=== PATIENT | female | born 1950 | race Caucasian/White ===

== ENCOUNTER → 2016-11-21 | Outpatient (CLI) | payer MEDICARE, OTHER | LOC: LAB.O 08:35 | PROVIDERS: ATTEND Internal Medicine Rheumatology | DX: M06.9 Rheumatoid arthritis, unspecified (principal); Z79.899 Other long term (current) drug therapy ==

== ENCOUNTER 2017-01-01 18:06 | Emergency (ER) | payer MEDICARE, OTHER ==
[2017-01-01] MEDS ORDERED: ALUMINUM & MAGNESIUM HYDROXIDE 30 ML UD PO ONE (18:28)
[2017-01-01] MEDS ORDERED: PREGABALIN 75 MG CAP PO ONE (18:28)
[2017-01-01] MEDS ORDERED: ACETAMINOPHEN-CAFF-BUTALBITAL 1 EA TAB PO SCH ×2 (18:30→23:30)
--- NOTE | 2017-01-01 18:53 | RAD ---
EXAM DESCRIPTION: Chest,2 Views CLINICAL HISTORY: chest pain 12 hours COMPARISON: None FINDINGS: Cardiac silhouette is within normal limits. Linear opacities in the left lower lung may represent scar versus subsegmental atelectasis. There is no focal parenchymal or pleural disease. There is no acute osseous process visualized. IMPRESSION: No evidence of acute cardiopulmonary disease. Electronically signed by: Leonidas Nath MD 01/01/2017 6:52 PM WAREHOUSE DELIVERY MANAGER
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
[2017-01-01 23:44] VITALS: BP 146/93; TEMP 97.8; O2SAT 96
--- NOTE | 2017-01-15 00:10 | RAD ---
EXAM DESCRIPTION: Chest,2 Views CLINICAL HISTORY: chest pain 12 hours COMPARISON: None FINDINGS: Cardiac silhouette is within normal limits. Linear opacities in the left lower lung may represent scar versus subsegmental atelectasis. There is no focal parenchymal or pleural disease. There is no acute osseous process visualized. IMPRESSION: No evidence of acute cardiopulmonary disease. Electronically signed by: Leonidas Nath MD 01/01/2017 6:52 PM CASE MONITOR
== END 2017-01-01 23:44 | disposition home or self-care (01) ==
LOC: ER 18:06
DX: M94.0 Chondrocostal junction syndrome [Tietze] (principal); J45.909 Unspecified asthma, uncomplicated; Z86.73 Personal history of transient ischemic attack (TIA), and cerebral infarction without residual deficits; I10 Essential (primary) hypertension; E07.9 Disorder of thyroid, unspecified; Z88.8 Allergy status to other drugs, medicaments and biological substances; Z88.6 Allergy status to analgesic agent; Z88.0 Allergy status to penicillin; Z88.2 Allergy status to sulfonamides; Z79.899 Other long term (current) drug therapy; Z87.891 Personal history of nicotine dependence

== ENCOUNTER 2017-01-19 11:43 | Emergency (ER) | payer MEDICARE, OTHER ==
[2017-01-19] MEDS ORDERED: LIDOCAINE VIS-MYLANTA 30 ML UD PO ONE (11:49)
--- NOTE | 2017-01-19 13:05 | RAD ---
EXAM DESCRIPTION: Chest,2 Views CLINICAL HISTORY: 67 yearsFemale, recurrent chest pain COMPARISON: January 01, 2017 IMPRESSION: Heart size and pulmonary vascularity are within normal limits. There is no airspace consolidation, pleural effusion, or pneumothorax. No acute osseous abnormality. All findings are stable when compared to prior. Electronically signed by: Morgan Tabor MD 01/19/2017 1:04 PM MIDDLE SCHOOL DIRECTOR
[2017-01-19] MEDS ORDERED: NITROGLYCERIN 0.4 MG 25 EA TAB SL ONE (13:50)
[2017-01-19 14:52] VITALS: TEMP 97.8
--- NOTE | 2017-01-19 16:55 | CT ---
EXAM: CTA Chest CLINICAL INDICATION: 67-year-old female COMPARISON: 05/31/2016. EXAMINATION: CT angiography of the pulmonary arteries was performed following intravenous administration of contrast. Coronal and bilateral oblique maximum intensity projections (MIPS) were created. FINDINGS: Chest: Evaluation through the lungs reveals no focal opacity, pleural effusion or pneumothorax. There is minimal dependent basilar atelectasis and scarring. The tracheobronchial airways are patent. No significant mediastinal or axillary lymphadenopathy by CT measurement criteria. Heart size within normal limits. Mild pericardial effusion or thickening slightly increased since the previous examination. Limited evaluation of the upper abdomen shows no acute intra-abdominal abnormalities. Surgical clips present at the level of the gallbladder fossa status post cholecystectomy. The osseous structures are within normal limits. Multilevel vertebral body hemangioma. CT angiography: Diagnostic CT angiography of the pulmonary arteries without intraluminal filling defect noted to suggest pulmonary arterial embolus. IMPRESSION: 1. Diagnostic pulmonary angiography without findings to suggest pulmonary arterial embolus. 2. The lungs are clear without focal opacity, pleural effusion or pneumothorax. 3. Mild pericardial effusion or thickening slightly increased since the previous examination. 4. No specific findings are noted to suggest etiology of the patient's chest pain and shortness of breath. Electronically signed by: Yumiko Otero MD 01/19/2017 4:54 PM MONUMENT SETTER
[2017-01-19] MEDS ORDERED: fentaNYL CITRATE INJ 50 MCG/ML AMP IV ONE (17:15)
[2017-01-19] MEDS ORDERED: NITROGLYCERIN 2% 1 GM UD TOP ONE ×2 (17:15→18:06)
[2017-01-19] MEDS ORDERED: fentaNYL PATCH 50 MCG/HR 1 EA PATCH TD ONE (17:24)
--- NOTE | 2017-01-19 17:28 | ED.PDOC ---
History of Present Illness - General Chief Complaint: Chest Pain/MO Stated Complaint: Sudden onset chest pain while at [employer] Time Seen by Provider: 01/19/17 11:46 Source: patient Exam Limitations: no limitations - History of Present Illness Initial Comments: the patient is a 67-year-old female presenting to the emergency room secondary to chest pain that is substernal. No radiation to the jaw or the shoulder. It is squeezing and burning at the same time. No palpitations. She did become short of breath with it. She did feel weak with it. It has been present approximately 20 minutes prior to arrival. At its worst it was an 8 out of 10 it is now down to a 5 out of 10. The patient denies any significant cardiac history but she was in here several weeks ago for a similar but less severe episode. The patient does have rheumatoid arthritis and went off of her medications to treat her rheumatoid arthritis as well as her Savella and Lyrica approximately 3-4 weeks ago due to funding reasons.. She does have a history of rheumatoid arthritis. She also has a history of irritable bowel syndrome, fibromyalgia, depression and anxiety as well as chronic back pain. She has had multiple neck and back surgeries. She has also had multiple abdominal surgeries. She has had multiple CT scans in the past due to her chronic pain issues and has had multiple CT scans of the chest for chronically elevated D dimers. She does not believe that she has ever had a blood clot. She is not hypoxic here today. She is reporting some dyspnea but is not tachypneic And is showing no evidence of respiratory distress. Affect is fairly flat. Timing/Duration: 1/2 hour Severity: severe Improving Factors: nothing Worsening Factors: nothing Associated Symptoms: chest pain, diaphoresis, malaise, shortness of breath Allergies/Adverse Reactions: Allergies Estradiol [From Depo-Estradiol] Allergy (Unknown, Verified 01/01/17 18:34) Rash Obtained from ' note Aspirin Allergy (Verified 01/01/17 18:34) Atorvastatin [From Lipitor] Allergy (Verified 01/01/17 18:34) Beta Adrenergic Blockers Allergy (Verified 01/01/17 18:34) Gabapentin [From Neurontin] Allergy (Verified 01/01/17 18:34) Hydrocodone Allergy (Verified 01/01/17 18:34) Penicillins Allergy (Verified 02/13/17 18:34) Sulfa Drugs Allergy (Verified 01/01/17 18:34) Pravastatin Adverse Reaction (Verified 01/01/17 18:34) steroids Adverse Reaction (Uncoded 01/01/17 18:34) Home Medications: Ambulatory Orders Tramadol HCl 50 mg PO Q6H PRN 02/16/14 Levothyroxine Sodium [Synthroid] 75 mcg PO DAILY 01/06/16 amLODIPine BESYLATE [Norvasc] 10 mg PO DAILY 01/06/16 cloNAZepam [KlonoPIN] 0.5 mg PO BEDTIME 01/06/16 Propranolol HCl 10 mg PO BID 01/19/17 fentaNYL PATCH 75 MCG/HR [Duragesic Patch 75 MCG/HR] 1 unit TOP .Q72 HR Review of Systems - Review of Systems Constitutional: States: malaise, weakness - generalized EENTM: States: no symptoms reported Respiratory: States: short of breath - mild Cardiology: States: chest pain. Denies: edema, palpitations, syncope Gastrointestinal/Abdominal: States: no symptoms reported Genitourinary: States: no symptoms reported Musculoskeletal: States: no symptoms reported - chronic problems Skin: States: no symptoms reported Neurological: States: anxiety - mild Endocrine: States: no symptoms reported All other Systems: No Change from Baseline Past Medical History (General) - Patient Medical History Hx Seizures: Yes - As a child x1 Hx Stroke: Yes Hx Asthma: Yes Hx of COPD: Yes Hx Cardiac Disorders: Yes Hx Congestive Heart Failure: No Hx Pacemaker: No Hx Hypertension: Yes Hx Thyroid Disease: Yes Hx Diabetes: No Hx Cancer: No Hx Hepatitis C: No Hx MRSA: No Surgical History: cholecystectomy, Hysterectomy - Vaccination History Hx Tetanus, Diphtheria Vaccination: No Hx Influenza Vaccination: Yes Hx Pneumococcal Vaccination: Yes Immunizations Up to Date: Yes - Social History Hx Tobacco Use: No Hx Chewing Tobacco Use: No Hx Alcohol Use: No Hx Substance Use: No Hx Substance Use Treatment: No Hx Depression: No Feels Threatened In Home Enviroment: No Feels Threatened In a Relationship: No Hx Physical Abuse: No Hx Emotional Abuse: No Hx Suspected Abuse: No - Female History Patient is a Female of Child Bearing Age (10 -59 yrs old): No Patient : No Family Medical History - Family History Father Family History: Unknown Hx Family;Other: Adopted Physical Exam - Physical Exam General Appearance: Alert, No apparent distress Eye Exam: bilateral normal Ears, Nose, Throat: hearing grossly normal, normal ENT inspection, normal pharynx Neck: full range of motion, supple, normal inspection Respiratory: chest non-tender, lungs clear, normal breath sounds, no respiratory distress, no accessory muscle use Cardiovascular/Chest: normal peripheral pulses, regular rate, rhythm, no edema Peripheral Pulses: radial,right: 2+, radial,left: 2+, dorsalis pedis,right: 2+, dorsalis pedis,left: 2+ Gastrointestinal/Abdominal: non tender, soft Rectal Exam: deferred Back Exam: no CVA tenderness, no vertebral tenderness - chronic pain primarily Extremity: normal range of motion, non-tender, normal inspection, no pedal edema , no calf tenderness, normal capillary refill Neurologic: alert, normal mood/affect, oriented x 3 Skin Exam: normal color Comments: Vital Signs - 24 hr 01/19/17 01/19/17 01/19/17 12:00 12:10 13:00 Temperature 97.8 F Pulse Rate [L 82 83 Arm] Respiratory 16 20 Rate Blood Pressure 126/81 144/94 [L Arm] O2 Sat by Pulse 94 L 100 96 Oximetry 01/19/17 01/19/17 01/19/17 14:00 15:00 16:00 Temperature Pulse Rate [L 85 77 82 Arm] Respiratory 18 16 16 Rate Blood Pressure 120/79 131/77 129/79 [L Arm] O2 Sat by Pulse 95 96 96 Oximetry Progress - Progress Progress: 01/19/17 17:31 the patient is a 67-year-old female presenting to the emergency room secondary to rapid onset of chest pain. She had one similar episode of chest pain a few weeks ago that was attributed to her coming off her pain medications. GI cocktail of course did not help with pain as well as several doses of nitroglycerin failed to help with the pain. The pain does not appear to be musculoskeletal or reproducible. Cardiac enzymes are negative however repeat EKG shows new T-wave inversions in leads V4, V5 and V6. CT scan of the chest done as a PE and rule out has shown no evidence of pulmonary embolus but does possibly show some thickening of the pericardium as well as a small pericardial effusion. There are certainly no symptoms of tamponade on in this patient. Vital signs have remained stable. The patient reports an allergy to aspirin and beta blockers. The patient has received oxygen, nitroglycerin, and opiates in the form of fentanyl which she is apparently not allergic to. I'm avoiding blood thinners otherwise due to the possibility of pericarditis. She is also reporting intolerance to steroids which may not be a true allergy. Transferring the patient for continuation of care and possible cardiac evaluation. Certainly now being a month off of her medications to treat her rheumatoid, complications are certainly possible. Other NSAIDs besides aspirin at this time are being avoided due to possibility of a coronary issue. she will need additional repeat cardiac enzymes and EKGs along with an ESR and CRP. 01/19/17 17:41 - Results/Orders Results/Orders: Laboratory Tests 01/19/17 01/19/17 01/19/17 12:00 12:10 14:41 WBC 4.5 L RBC 4.59 Hgb 13.0 Hct 39.9 MCV 87.0 MCH 28.4 MCHC 32.6 L RDW 14.5 Plt Count 212 MPV 9.5 Absolute Neuts (auto) 3.10 Absolute Lymphs (auto) 0.90 L Absolute Monos (auto) 0.30 Absolute Eos (auto) 0.20 Absolute Basos (auto) 0.10 Neutrophils % 67.3 Lymphocytes % 19.1 L Monocytes % 7.4 Eosinophils % 4.6 Basophils % 1.6 PT 10.9 INR 0.960 PTT (SP) 30.4 D-Dimer, Quantitative 720 H* Sodium 141 Potassium 3.8 Chloride 104 Carbon Dioxide 25 Anion Gap 15.8 BUN 20 H Creatinine 1.15 BUN/Creatinine Ratio 17.4 Random Glucose 125 H Serum Osmolality 285.3 Calcium 9.1 Total Bilirubin 0.6 AST 29 ALT 14 Alkaline Phosphatase 77 Creatine Kinase 64 65 CK-MB (CK-2) 1.3 1.3 CK-MB (CK-2) % Not Reportable Not Reportable Troponin I < 0.02 < 0.02 B-Natriuretic Peptide 71.5 Serum Total Protein 7.0 Albumin 3.9 Globulin 3.1 Albumin/Globulin Ratio 1.3 Amylase 91 Lipase 26 chest x-ray appears benign. CT angiogram of the chest due to elevated d-dimer as well as shortness of breath shows no evidence of pulmonary embolus. There is however concerned of a small pericardial effusion and pericardial thickening. Departure - Departure Clinical Impression: Chest pain at rest Rheumatoid arthritis Qualifiers: Rheumatoid arthritis location: multiple sites Rheumatoid factor presence: with rheumatoid factor Qualifier Code: (M05.79) Rheumatoid arthritis with rheumatoid factor of multiple sites without organ or systems involvement Disposition: Transfer to Hospital Condition: Fair Home Medications: Ambulatory Orders Tramadol HCl 50 mg PO Q6H PRN 02/16/14 Levothyroxine Sodium [Synthroid] 75 mcg PO DAILY 01/06/16 amLODIPine BESYLATE [Norvasc] 10 mg PO DAILY 01/06/16 cloNAZepam [KlonoPIN] 0.5 mg PO BEDTIME 01/06/16 Propranolol HCl 10 mg PO BID 01/19/17 fentaNYL PATCH 75 MCG/HR [Duragesic Patch 75 MCG/HR] 1 unit TOP .Q72 HR Transfer to Outside Facility - Transfer Information Accepting Provider:: dr waldron Accepting Facility: [facility] Reason for Transfer: required specialist not available
[2017-01-19 19:18] VITALS: BP 174/81; O2SAT 97
== END 2017-01-19 18:35 | disposition short-term general hospital (02) ==
LOC: ER 11:43
DX: R07.9 Chest pain, unspecified (principal); M05.79 Rheumatoid arthritis with rheumatoid factor of multiple sites without organ or systems involvement; R06.02 Shortness of breath; J44.9 Chronic obstructive pulmonary disease, unspecified; I10 Essential (primary) hypertension; E07.9 Disorder of thyroid, unspecified; Z88.8 Allergy status to other drugs, medicaments and biological substances; Z88.0 Allergy status to penicillin; Z88.2 Allergy status to sulfonamides; Z88.6 Allergy status to analgesic agent; Z79.899 Other long term (current) drug therapy
CPT/HCPCS: 36415; 71020; 71275; 80053; 82150; 82550; 82553; 83690; 83880; 84484; 85025; 85379; 85610; 85730; 93005; J3010

== ENCOUNTER → 2017-06-27 | Outpatient (CLI) | payer MEDICARE, OTHER | END | disposition home or self-care (01) | LOC: GMAJ 10:52 | PROVIDERS: ATTEND Family Medicine | DX: E03.8 Other specified hypothyroidism (principal) ==

== ENCOUNTER 2019-10-19 13:31 | Inpatient (IN) | payer MEDICARE, OTHER ==
[2019-10-19] MEDS ORDERED: methylPREDNISolone SODIUM SUC 125 MG/2 ML VIAL IM ONE (14:05)
[2019-10-19] MEDS ORDERED: IPRATROPIUM/ALBUTEROL 3 ML VIAL NEB ONE ×3 (14:10→14:44)
--- NOTE | 2019-10-19 15:02 | RAD ---
EXAM DESCRIPTION: XR Chest,1 View CLINICAL HISTORY: 69 years Female, sob COMPARISON: 2 view chest dated January 19, 2017. FINDINGS: Heart size appears within normal limits. There is atherosclerotic change in the thoracic aorta. The lungs appear essentially clear and unchanged compared to the last examination, although there is slight underpenetration of the left lung base and relative elevation of the right hemidiaphragm. No obvious pneumothorax identified on this upright portable film. Postoperative change is again identified in the cervicothoracic portion of the spine. In the interval, there are new postoperative changes with metallic hardware in the lumbar spine, along with placement of a spinal stimulator device, with the leads extending up into the mid thoracic region. IMPRESSION: No radiographic evidence of acute cardiopulmonary disease. Electronically signed by: Nikhil Jerez MD 10/19/2019 3:01 PM [facility]
--- NOTE | 2019-10-19 15:07 | ED.PDOC ---
History of Present Illness - General Chief Complaint: General Stated Complaint: fever,congestion,hurts all over Time Seen by Provider: 10/19/19 14:04 - History of Present Illness Initial Comments: c/o having intermittent fever , cough with greenish sputum , associated with soib and wheezing since 2 days , getting worse today , no nausea or vomiting Allergies/Adverse Reactions: Allergies Estradiol [From Depo-Estradiol] Allergy (Unknown, Verified 01/01/17 18:34) Rash Obtained from ' note Aspirin Allergy (Verified 01/01/17 18:34) Atorvastatin [From Lipitor] Allergy (Verified 01/01/17 18:34) Beta Adrenergic Blockers Allergy (Verified 01/01/17 18:34) Gabapentin [From Neurontin] Allergy (Verified 01/01/17 18:34) Hydrocodone Allergy (Verified 01/01/17 18:34) Penicillins Allergy (Verified 01/01/17 18:34) Pregabalin [From Lyrica] Allergy (Verified 10/19/19 14:54) Sulfa Drugs Allergy (Verified 01/01/17 18:34) Pravastatin Adverse Reaction (Verified 01/01/17 18:34) steroids Adverse Reaction (Uncoded 01/01/17 18:34) Home Medications: Ambulatory Orders Tramadol HCl 100 mg PO Q6H PRN 02/16/14 Levothyroxine Sodium [Synthroid] 75 mcg PO DAILY 01/06/16 amLODIPine BESYLATE [Norvasc] 10 mg PO DAILY 01/06/16 Propranolol HCl 10 mg PO DAILY 01/19/17 Amitriptyline HCl [Amitriptyline Hydrochlori] 25 mg PO BEDTIME 10/19/19 Aspirin [Aspirin Adult Low Dose] 81 mg PO DAILY 10/19/19 Clopidogrel Bisulfate [Plavix] 75 mg PO QD 10/19/19 DULoxetine HCL [Cymbalta] 30 mg PO DAILY 10/19/19 Hydroxyzine HCl [Hydroxyzine Hydrochloride] 50 mg PO TID PRN 10/19/19 Montelukast [Singulair] 10 mg PO DAILY 10/19/19 Omeprazole 40 mg PO DAILY 10/19/19 Oxybutynin Chloride 5 mg PO TID 10/19/19 Rivastigmine Tartrate 3 mg PO BID 10/19/19 Review of Systems - Review of Systems Constitutional: States: see HPI EENTM: States: no symptoms reported Respiratory: States: see HPI Cardiology: States: no symptoms reported Gastrointestinal/Abdominal: States: no symptoms reported Genitourinary: States: no symptoms reported Musculoskeletal: States: no symptoms reported Skin: States: no symptoms reported Neurological: States: no symptoms reported Endocrine: States: no symptoms reported Hematologic/Lymphatic: States: no symptoms reported Past Medical History (General) - Patient Medical History Hx Seizures: Yes - As a child x1 Hx Stroke: No Hx Asthma: Yes Hx of COPD: Yes Hx Cardiac Disorders: Yes Hx Congestive Heart Failure: Yes Hx Pacemaker: No Hx Hypertension: Yes Hx Thyroid Disease: Yes Hx Diabetes: No Hx Cancer: No Hx Hepatitis C: No Hx MRSA: No - Vaccination History Hx Tetanus, Diphtheria Vaccination: No Hx Influenza Vaccination: Yes Hx Pneumococcal Vaccination: Yes - Social History Hx Tobacco Use: Yes Hx Chewing Tobacco Use: No Hx Alcohol Use: No Hx Substance Use: No Hx Substance Use Treatment: No Hx Depression: No Hx Physical Abuse: No Hx Emotional Abuse: No Hx Suspected Abuse: No - Female History Patient : No Family Medical History - Family History Father Family History: Unknown Hx Family;Other: Adopted Physical Exam - Physical Exam General Appearance: Ill Appearing Eye Exam: bilateral normal Ears, Nose, Throat: normal ENT inspection Neck: non-tender, full range of motion, supple, normal inspection Respiratory: respiratory distress, decreased breath sounds, wheezing Cardiovascular/Chest: tachycardia Gastrointestinal/Abdominal: non tender Back Exam: normal inspection, no CVA tenderness, no vertebral tenderness Extremity: normal range of motion, non-tender, normal inspection Neurologic: no motor/sensory deficits, alert, normal mood/affect, oriented x 3 Skin Exam: normal color Lymphatic: no adenopathy Progress - Progress Progress: 10/19/19 15:20 Case discuss with hospitalist Ronny agreed to admit for 24 hours observation - Results/Orders Results/Orders: 10/19/19 14:20 STREP A SCREEN CULTURE Stat Laboratory Results WBC 8.4 K/mm3 (4.8-10.8) 10/19/19 14:17 RBC 4.79 M/mm3 (4.20-5.40) 10/19/19 14:17 Hgb 13.6 gm/dL (12.0-16.0) 10/19/19 14:17 Hct 40.4 % (36.0-47.0) 10/19/19 14:17 MCV 84.2 fl (81.0-99.0) 10/19/19 14:17 MCH 28.4 pg (27.0-31.0) 10/19/19 14:17 MCHC 33.7 g/dL (33.0-37.0) 10/19/19 14:17 RDW 15.2 % (11.5-14.5) H 10/19/19 14:17 Plt Count 184 K/mm3 (130-400) 10/19/19 14:17 MPV 8.2 fl (7.40-10.4) 10/19/19 14:17 Absolute Neuts (auto) 6.70 K/uL (1.8-6.8) 10/19/19 14:17 Absolute Lymphs (auto) 0.60 K/uL (1.0-3.4) L 10/19/19 14:17 Absolute Monos (auto) 0.90 K/uL (0.2-0.8) H 10/19/19 14:17 Absolute Eos (auto) 0.10 K/uL (0.0-0.4) 10/19/19 14:17 Absolute Basos (auto) 0.10 K/uL (0.0-0.1) 10/19/19 14:17 Neutrophils % 79.6 % (42.0-78.0) H 10/19/19 14:17 Lymphocytes % 7.7 % (20.0-50.0) L 10/19/19 14:17 Monocytes % 10.9 % (2.0-9.0) H 10/19/19 14:17 Eosinophils % 0.9 % (1.0-5.0) L 10/19/19 14:17 Basophils % 0.9 % (0.0-2.0) 10/19/19 14:17 Sodium 132 mmol/L (135-145) L 10/19/19 14:17 Potassium 3.6 mmol/L (3.6-5.0) 10/19/19 14:17 Chloride 100 mmol/L (101-111) L 10/19/19 14:17 Carbon Dioxide 21 mmol/L (21-31) 10/19/19 14:17 Anion Gap 14.6 (12-18) 10/19/19 14:17 BUN 17 mg/dL (7-18) 10/19/19 14:17 Creatinine 1.31 mg/dL (0.6-1.3) H 10/19/19 14:17 BUN/Creatinine Ratio 13.0 (10-20) 10/19/19 14:17 Random Glucose 121 mg/dL (70-105) H 10/19/19 14:17 Serum Osmolality 267.3 mOsm/L (275-295) L 10/19/19 14:17 Calcium 8.8 mg/dL (8.4-10.2) 10/19/19 14:17 Total Bilirubin 0.7 mg/dL (0.2-1.0) 10/19/19 14:17 AST 27 IU/L (10-42) 10/19/19 14:17 ALT 14 IU/L (10-60) 10/19/19 14:17 Alkaline Phosphatase 81 IU/L (42-121) 10/19/19 14:17 Serum Total Protein 7.4 gm/dL (6.4-8.2) 10/19/19 14:17 Albumin 4.0 g/dl (3.2-5.5) 10/19/19 14:17 Globulin 3.4 gm/dL (2.3-3.5) 10/19/19 14:17 Albumin/Globulin Ratio 1.2 (1.1-1.9) 10/19/19 14:17 Group A Strep Rapid Negative (NEGATIVE) 10/19/19 14:20 - EKG/XRAY/CT Xray Comments: Normal Departure - Departure Clinical Impression: Acute bronchitis, Acute exacerbation of COPD with asthma Disposition: Admit Patient Condition: Fair Departure Forms: ED Discharge - Pt. Copy, Patient Portal Self Enrollment Referrals: Driss España MD [Primary Care Provider] - 1-2 Weeks Home Medications: Ambulatory Orders Tramadol HCl 100 mg PO Q6H PRN 02/16/14 Levothyroxine Sodium [Synthroid] 75 mcg PO DAILY 01/06/16 amLODIPine BESYLATE [Norvasc] 10 mg PO DAILY 01/06/16 Propranolol HCl 10 mg PO DAILY 01/19/17 Amitriptyline HCl [Amitriptyline Hydrochlori] 25 mg PO BEDTIME 10/19/19 Aspirin [Aspirin Adult Low Dose] 81 mg PO DAILY 10/19/19 Clopidogrel Bisulfate [Plavix] 75 mg PO QD 10/19/19 DULoxetine HCL [Cymbalta] 30 mg PO DAILY 10/19/19 Hydroxyzine HCl [Hydroxyzine Hydrochloride] 50 mg PO TID PRN 10/19/19 Montelukast [Singulair] 10 mg PO DAILY 10/19/19 Omeprazole 40 mg PO DAILY 10/19/19 Oxybutynin Chloride 5 mg PO TID 10/19/19 Rivastigmine Tartrate 3 mg PO BID 10/19/19
[2019-10-19] MEDS ORDERED: ACETAMINOPHEN 500 MG TAB PO ONE (15:14)
[2019-10-19] MEDS ORDERED: OSELTAMIVIR 75 MG CAP PO ONE (15:30)
--- NOTE | 2019-10-19 15:45 | HP ---
SUPERVISING PHYSICIAN: Dariel Warner MD CHIEF COMPLAINT: Fever, shortness of breath. HISTORY OF PRESENT ILLNESS: Ms. Puentes is a 69-year-old female with a history of asthma and sleep apnea, rheumatoid arthritis and multiple other medical problems. She had presented to the clinic today for evaluation of fever and general malaise and was noted to have 103 temperature at the clinic and then was referred for evaluation at the Emergency Room. In the Emergency Room, she endorses she was having productive sputum that was noted to be greenish in color that was associated with shortness of breath and severe wheezing that had been occurring over the last few days and acutely worsening today along with the increase in general malaise. She denied any chest pain, nausea or vomiting or abdominal pains. Vital signs initially in the Emergency Room showed that she was running a fever of 103.1 with a heart rate of 115, saturation 88% on room air and not normally O2 dependent. After breathing treatments and nasal cannula at 3 liters, she was showing saturation of 93%. Her chest x-ray per radiologic interpretation was without any acute cardiopulmonary disease noted. On physical examination, the patient was in mild distress with some obvious inspiratory and expiratory wheezing and was at one point audible without a stethoscope. She was given multiple breathing treatments, steroids with improvement in her symptoms after being placed on oxygen. Given the severe respiratory difficulty with 103 fever along with saturation of 88% on room air, a flu swab was completed which was negative by PCR for A and B. Her white count on initial labs was 8,400 without a current left shift. Chemistries showed a mild hyponatremia with sodium 132. BUN 17, creatinine was a little elevated at 1.31. All other liver functions were within normal limits. Lactic acid was 1.1. Given the patient's history of asthma seizure, temperature 103, tachycardic, hypoxic on room air, concerns for developing early community acquired pneumonia likely on top of an influenza-like illness and given that she does have prominent inspiratory and expiratory wheezing requiring oxygen, she is going to be admitted for further treatment and evaluation. She was admitted in stable condition. PAST MEDICAL HISTORY: 1. Asthma. 2. Carotid artery stenosis. 3. Hyperlipidemia. 4. Hypertension. 5. Hypothyroidism. 6. Chronic sleep apnea on CPAP. 7. Diverticulosis. 8. Gastroesophageal reflux disease. 9. Chronic back pain with neurostimulator and multiple lumbar surgeries. 10. Fibromyalgia. 11. Rheumatoid arthritis. 12. Migraine headaches. 13. Peripheral neuropathy. 14. Essential tremor. 15. Vitamin B12 deficiency. PAST SURGICAL HISTORY: 1. Appendectomy. 2. Cholecystectomy. 3. Total hysterectomy. 4. Multiple spine surgeries of lower spine times 5 with a neurostimulator in place in [address] Allen in [place]. 5. Bilateral carpal tunnel release. 6. Cardiac cath in 2010 with no stenosis. 7. Right prepatellar bursectomy. HOME MEDICATIONS: 1. Amlodipine 200 mg daily. 2. Tramadol 100 mg q.6h. as needed for pain. 3. Rivastigmine tartrate 3 mg b.i.d. 4. Propranolol 10 mg daily. 5. Oxybutynin chloride 5 mg t.i.d. 6. Omeprazole 40 mg daily. 7. Singulair 10 mg daily. 8. Synthroid 75 mcg daily. 9. Hydroxyzine 50 mg t.i.d. as needed. 10. Cymbalta 30 mg daily. 11. Plavix 75 mg b.i.d. 12. Aspirin 81 mg daily. 13. Elavil 25 mg at bedtime. ALLERGIES: MULTIPLE ALLERGIES TO INCLUDE DEPO-ESTRADIOL, ASPIRIN, LIPITOR, BETA ADRENERGIC BLOCKERS, GABAPENTIN, OXYCODONE, PENICILLINS, LYRICA, SULFA DRUGS, PRAVASTATIN. FAMILY HISTORY: Unknown as the patient is adopted. SOCIAL HISTORY: The patient is disabled due to an injury. She is . She just recently moved back to [place] from [place]. She has two children. She does have a history of smoking cigarettes, but quit in 1994. She does not drink alcohol or use illicit drugs. REVIEW OF SYSTEMS: CONSTITUTIONAL: Positive for general malaise, rigors, fever noted to be 103 on admission. HEENT: Positive for nasal congestion. Negative for sore throats, earaches, vision changes, headaches, but does have a history of migraines. RESPIRATORY: As noted in history of present illness, productive cough, wheezing, worsening shortness of breath. CARDIOVASCULAR: Negative for chest pain, palpitations or syncopal episodes. GASTROINTESTINAL: Negative for nausea, vomiting, diarrhea, constipation or abdominal pain. GENITOURINARY: Negative for dysuria, hematuria, polyuria. MUSCULOSKELETAL: Positive for general arthralgias, no joint swelling. NEUROLOGIC: Positive for migraines, but denies ataxia, seizures, vision changes, syncopal episodes or focal deficits. She does note that she has some mild paresthesias of the right leg related to her spinal stimulator which is being followed by neurology as well as orthopedics. No reported lower extremity weakness or ataxia. SKIN: Denies lesions, rashes, moles or unexplained changes. HEMATOLOGIC: Denies easy bruising or unexplained bleeding. No transfusion reaction. PHYSICAL EXAMINATION: VITAL SIGNS: Temperature on admission was 103.1. Pulse 115. Blood pressure 121/89. Saturation 88% on room air with respirations 20. After breathing treatments and on O2 at 3 liters nasal cannula, saturation was 93%. After Tylenol and upon admission, temperature had normalized to 98.7. Admission weight 76 kg. GENERAL: The patient was resting comfortably. She does appear overall generally unwell, but was in no acute distress. She is well hydrated, well nourished. HEENT: Tympanic membranes clear bilaterally. Oropharynx is pink, moist without any lesions. NECK: Supple, nontender with full range of motion. No jugular venous distention noted. RESPIRATORY: Lung sounds diminished throughout with prominent inspiratory and expiratory wheezing in all lung callahan. No rales or rhonchi were noted. CARDIOVASCULAR: Regular rate and rhythm without any appreciable murmurs, gallops, or rubs. ABDOMEN: Soft, nontender. Positive bowel sounds. No tenderness on palpation. BACK: Multiple scars. No noted vertebral or CVA tenderness. RECTAL: Deferred. EXTREMITIES: There is no cyanosis, clubbing or edema. NEUROLOGIC: The patient is alert and oriented times three. Cranial nerves II- XII are grossly intact. Facial features are symmetrical. Extraocular movements are within normal limits. There is no nystagmus noted. LABORATORY: White count within normal limits at 8,400, hemoglobin 13.6, hematocrit 40.4, placated 184,000. Differential without a current left shift. Chemistry showed a mild hyponatremia at 132 with potassium 3.6, anion gap normal at 14, carbon dioxide 21, BUN 17, creatinine elevated slightly at 1.31. Lactic acid normal at 1.1. Liver functions within normal limits. Rapid group A Strep negative. MICROBIOLOGY: Blood cultures pending. Sputum culture pending. Influenza A and B by PCR negative. RADIOLOGY: Chest x-ray, single-view, in the Emergency Room per radiologic interpretation was without any evidence of acute cardiopulmonary disease. ASSESSMENT: 1. Sepsis with 103 temperature, tachycardic, hypoxic on room air with some mild respiratory distress secondary to an upper respiratory infection with concerns for flu-like illness and developing community acquired pneumonia in a patient with a history of asthma not normally oxygen dependent. 2. Electrolyte imbalance to include hyponatremia, likely due to #1. 3. Renal insufficiency, likely due to underlying fever and prerenal azotemia. 4. History of hypertension. 5. Hypothyroidism on supplementation. 6. Obstructive sleep apnea utilizing CPAP. 7. Diverticulosis without any signs of acute diverticulitis. 8. Chronic gastroesophageal reflux disease. 9. Chronic lower back pain with a neurostimulator. 10. Chronic fibromyalgia. 11. Rheumatoid arthritis. 12. History of migraine headaches. 13. Essential tremor. 14. B12 deficiency by history. PLAN: Ms. Puentes is going to be admitted for initiation of treatment for what appears to be a developing community acquired pneumonia with exacerbation of asthma. She was prominently having inspiratory and expiratory wheezing and was given steroids initially in the Emergency Room. We will follow this up with tapering steroids as she clinically improves. She will be on aggressive pulmonary hygiene along with chest percussive therapy and DuoNeb treatments. We will also start her on some inhaled steroids in the form of Pulmicort. We will start her on some fluids to help correct the prerenal azotemia as well as the hyponatremia utilizing normal saline with 20 of potassium and will run at 80 an hour. We will review her medications and resume those as appropriate. I have started her on antibiotics to include azithromycin and Rocephin given her severity of symptoms and history. Given that she did have a 103 degree temperature and has a presentation and clinical features of flu-like illness, we went ahead and started her on Tamiflu. She will be on DVT prophylaxis per protocol with Lovenox as well as we will put her on a PPI for gastric protection given that she is going to be on corticosteroids. I would anticipate her length of stay to be at least 2 to 3 days, probably discharging by Sunday. Until we can transition her to oral medication, we will continue to monitor and treat as needed. #[id number] [facility]
[2019-10-19] MEDS ORDERED: cefTRIAXone SODIUM 1 GM in SODIUM CHL 0.9% 50ML MIN-BAG+ 50 ML IVPB ONE (16:00)
[2019-10-19] MEDS ORDERED: SODIUM CHLORIDE 0.9% 250ML 250 ML ONE (16:00)
[2019-10-19] MEDS ORDERED: cefTRIAXone SODIUM 1 GM VIAL ONE (16:00)
[2019-10-19] MEDS ORDERED: SODIUM CHL 0.9% 50ML MIN-BAG+ 50 ML IVPB ONE (16:00)
[2019-10-19] MEDS ORDERED: AZITHROMYCIN IV 500 MG VIAL IVPB ONE (16:01)
[2019-10-19] MEDS ORDERED: AZITHROMYCIN IV 500 MG in SODIUM CHLORIDE 0.9% 250ML 250 ML IVPB ONE (17:00)
[2019-10-19] MEDS ORDERED: ALBUTEROL SULFATE 2.5 MG/3 ML VIAL NEB PRN (17:25)
[2019-10-19] MEDS ORDERED: SODIUM CHLORIDE 0.9% (FLUSH) 10 ML SYG IV PRN (17:25)
[2019-10-19] MEDS ORDERED: ACETAMINOPHEN 325 MG TAB PO PRN (17:34)
[2019-10-19] MEDS ORDERED: ONDANSETRON INJ 4 MG/2 ML VIAL IV PRN (17:34)
[2019-10-19] MEDS ORDERED: MAGNESIUM HYDROXIDE 30 ML UD PO PRN (17:34)
[2019-10-19] MEDS ORDERED: ALUM & MAG HYDROX-SIMETHICONE 30 ML UD PO PRN (17:34)
[2019-10-19] MEDS: KCL 20 MEQ/NS 1,000 ML IVS PRN (18:27)
[2019-10-19] MEDS: IV SET AND CAP CHANGE INJ INJ SCH (19:32)
[2019-10-19] MEDS: IPRATROPIUM/ALBUTEROL 3 ML VIAL INH SCH (20:20)
[2019-10-19] MEDS ORDERED: hydrOXYzine HCl 25 MG TAB PO PRN (21:08)
[2019-10-19] MEDS ORDERED: traMADol HCL 50 MG TAB PO PRN (21:08)
[2019-10-19] MEDS: RIVASTIGMINE TARTRATE 3 MG PO SCH (21:16)
[2019-10-19] MEDS: AMITRIPTYLINE HCL 25 MG TAB PO SCH (21:16)
[2019-10-19] MEDS: OXYBUTYNIN CL 5 MG TAB PO SCH (21:16)
[2019-10-20] MEDS: OMEPRAZOLE CAP 20 MG CAP PO SCH (06:17)
[2019-10-20] MEDS: LEVOTHYROXINE SODIUM 0.075 MG TAB PO SCH (06:17)
[2019-10-20] MEDS ORDERED: PROPRANOLOL HCL 20 MG TAB ONE (07:04)
--- NOTE | 2019-10-20 07:22 | RAD ---
EXAM: XR Chest, 2 Views CLINICAL HISTORY: Pneumonia TECHNIQUE: Frontal and lateral views of the chest. COMPARISON: 10/19/2019. FINDINGS: Limitations: None. Lungs: Stable small, triangular focus of consolidation in the retrocardiac left lower lobe. Pleural space: Unremarkable. No pneumothorax. Heart: Unremarkable. No cardiomegaly. Mediastinum: Unremarkable. Bones/joints: Unremarkable. Tubes, lines and devices: Stable dorsal column electrode. IMPRESSION: Stable abnormalities as above. Electronically signed by: Cornelia Velazquez MD 10/20/2019 7:20 AM [facility]
[2019-10-20] MEDS: ASPIRIN (ENTERIC COATED) 81 MG TAB PO SCH (08:19)
[2019-10-20] MEDS: KCL 20 MEQ/NS 1,000 ML IVS PRN (08:19)
[2019-10-20] MEDS: MONTELUKAST 10 MG TAB PO SCH (08:19)
[2019-10-20] MEDS: OXYBUTYNIN CL 5 MG TAB PO SCH ×3 (08:20→21:14)
[2019-10-20] MEDS: DULoxetine HCL 30 MG CAP PO SCH (08:20)
[2019-10-20] MEDS: ENOXAPARIN SODIUM 40 MG/0.4 ML SYG SUBCU SCH (08:20)
[2019-10-20] MEDS: amLODIPine BESYLATE 5 MG TAB PO SCH (08:20)
[2019-10-20] MEDS: IPRATROPIUM/ALBUTEROL 3 ML VIAL INH SCH ×4 (08:42→20:38)
[2019-10-20] MEDS: BUDESONIDE NEBS 0.25 MG/2 ML INH NEB SCH ×2 (08:42→20:42)
[2019-10-20] MEDS ORDERED: NON-FORMULARY MEDICATION 1 EA MIS (Omeprazole [Omeprazole] 40 MG) PO SCH (09:00)
[2019-10-20] MEDS ORDERED: LEVOTHYROXINE SODIUM 0.075 MG TAB PO SCH (09:00)
[2019-10-20] MEDS ORDERED: AZITHROMYCIN IV 500 MG VIAL IVPB ONE (09:47)
[2019-10-20] MEDS: RIVASTIGMINE TARTRATE 3 MG PO SCH ×2 (09:47→21:13)
[2019-10-20] MEDS ORDERED: SODIUM CHLORIDE 0.9% 250ML 250 ML ONE (09:47)
[2019-10-20] MEDS: PROPRANOLOL HCL 20 MG TAB PO SCH (09:51)
[2019-10-20] MEDS: CLOPIDOGREL 75 MG TAB PO SCH (09:52)
[2019-10-20] MEDS: AZITHROMYCIN IV 500 MG in SODIUM CHLORIDE 0.9% 250ML 250 ML IVPB SCH (09:53)
[2019-10-20] MEDS: BENZONATATE PERLES 100 MG CAP PO SCH ×3 (12:08→21:14)
[2019-10-20] MEDS: guaiFENesin ER TAB 600 MG TAB PO SCH ×2 (12:08→21:17)
[2019-10-20] MEDS ORDERED: SODIUM CHL 0.9% 50ML MIN-BAG+ 50 ML IVPB ONE (15:15)
[2019-10-20] MEDS ORDERED: cefTRIAXone SODIUM 1 GM VIAL ONE (15:16)
[2019-10-20] MEDS: cefTRIAXone SODIUM 1 GM in SODIUM CHL 0.9% 50ML MIN-BAG+ 50 ML IVPB SCH (15:17)
[2019-10-20] MEDS: methylPREDNISolone SODIUM SUC 40 MG/ML VIAL IV SCH ×2 (15:17→17:39)
--- NOTE | 2019-10-20 15:29 | PN ---
SUPERVISING PHYSICIAN: Driss España MD DATE: 10/20/19 SUBJECTIVE: The patient continues to have a great deal of coughing through the night. She notes she is still short of breath without oxygen in place. She is not complaining of any chest pains. She has been afebrile since admission with T-max noted to be at 103.1. She has had no nausea, vomiting or diarrhea. I did clarify with her her adverse reaction with steroids and she notes when she is on long-term steroids, it tends to make her psychotic. OBJECTIVE: VITAL SIGNS: T-max 100.8. Blood pressure 112/73. Heart rate 102. GENERAL: The patient is resting comfortably, appears to be in no acute distress. CHEST: Lung sounds are a little bit improved on the right. Left continues to be with notable inspiratory and expiratory wheezing with some rhonchi heard towards the posterolateral aspect on the lower lobe. HEART: Regular rate and rhythm. EXTREMITIES: No edema. NEUROLOGIC: Alert and oriented times three. LABORATORY: White count 11,900 with a left shift today. Hemoglobin 12.4, hematocrit 38.3, platelet count 184,000. Chemistries show now normal sodium of 137. BUN 25, creatinine has also gone up to 1.76 with calcium 8.9. MICROBIOLOGY: Blood cultures remain negative. Group A strep culture pending. RADIOLOGY: Chest x-ray this morning, two-view, per radiologic interpretation shows a triangular focus of consolidation in the retrocardiac left lower lobe. Otherwise, essentially unchanged from the single view chest. ASSESSMENT: 1. Exacerbation of asthma with developing left lower lobe pneumonia, community acquired. 2. Sepsis secondary to #1. 3. Electrolyte imbalance to include hyponatremia, due to #1, resolved with fluids and treatment. 4. Renal insufficiency, uncertain etiology, possibly due to Tamiflu. 5. History of hypertension. 6. Hypothyroidism on supplementation. 7. Obstructive sleep apnea utilizing CPAP. 8. Diverticulosis without any signs of acute diverticulitis. 9. Chronic gastroesophageal reflux disease. 10. Chronic lower back pain with a neurostimulator. 11. Chronic fibromyalgia. 12. Rheumatoid arthritis. 13. History of migraine headaches. 14. Essential tremor. 15. B12 deficiency by history. PLAN: We will continue current treatment with azithromycin and Rocephin for treatment of the pneumonia. She remains on aggressive pulmonary hygiene. We will start her on some Mucinex for her cough and continue with fluids due to her elevated creatinine. We will dose her Tamiflu as needed for her renal function. She remains on DVT prophylaxis per protocol. I would anticipate at least another 24 to 48 hours before discharge. I will continue with steroids to include Solu-Medrol for an additional 3 doses and possibly transition to p.o. at that time. Until the patient can transition to outpatient management, we will continue to monitor and treat as needed. #[id number] [facility]
[2019-10-20] MEDS: AMITRIPTYLINE HCL 25 MG TAB PO SCH (21:14)
[2019-10-20] MEDS ORDERED: methylPREDNISolone SODIUM SUC 40 MG/ML VIAL IV SCH (22:00)
[2019-10-21] MEDS: OMEPRAZOLE CAP 20 MG CAP PO SCH (06:40)
[2019-10-21] MEDS: LEVOTHYROXINE SODIUM 0.075 MG TAB PO SCH (06:43)
[2019-10-21] MEDS ORDERED: SODIUM CHLORIDE 0.9% 250ML 250 ML ONE (07:15)
[2019-10-21] MEDS ORDERED: AZITHROMYCIN IV 500 MG VIAL IVPB ONE (07:17)
[2019-10-21] MEDS: MONTELUKAST 10 MG TAB PO SCH (08:12)
[2019-10-21] MEDS: BENZONATATE PERLES 100 MG CAP PO SCH ×3 (08:12→21:21)
[2019-10-21] MEDS: CLOPIDOGREL 75 MG TAB PO SCH (08:12)
[2019-10-21] MEDS: ASPIRIN (ENTERIC COATED) 81 MG TAB PO SCH (08:13)
[2019-10-21] MEDS: DULoxetine HCL 30 MG CAP PO SCH (08:13)
[2019-10-21] MEDS: PROPRANOLOL HCL 20 MG TAB PO SCH (08:13)
[2019-10-21] MEDS: amLODIPine BESYLATE 5 MG TAB PO SCH (08:13)
[2019-10-21] MEDS: guaiFENesin ER TAB 600 MG TAB PO SCH ×2 (08:13→21:22)
[2019-10-21] MEDS: OXYBUTYNIN CL 5 MG TAB PO SCH ×3 (08:14→21:21)
[2019-10-21] MEDS: ENOXAPARIN SODIUM 40 MG/0.4 ML SYG SUBCU SCH (08:14)
[2019-10-21] MEDS: RIVASTIGMINE TARTRATE 3 MG PO SCH ×2 (08:32→21:22)
[2019-10-21] MEDS: IPRATROPIUM/ALBUTEROL 3 ML VIAL INH SCH ×4 (08:36→20:55)
[2019-10-21] MEDS: BUDESONIDE NEBS 0.25 MG/2 ML INH NEB SCH ×2 (08:36→20:55)
[2019-10-21] MEDS: predniSONE 20 MG TAB PO SCH (10:25)
[2019-10-21] MEDS: AZITHROMYCIN IV 500 MG in SODIUM CHLORIDE 0.9% 250ML 250 ML IVPB SCH (10:25)
--- NOTE | 2019-10-21 12:04 | PN ---
SUPERVISING PHYSICIAN: Driss España MD DATE: 10/21/19 SUBJECTIVE: The patient states she still gets a little short of breath with ambulation. O2 saturations have been fair off of oxygen. She is coughing up sputum which is white with yellow streaks, she says. She is still getting vest therapy as well. OBJECTIVE: VITAL SIGNS: Blood pressure 111/68. Heart rate 65. Respiratory rate 16. Temperature 97.0. Oxygen saturation 94% on room air. GENERAL: Ms. Puentes is a 69-year-old female who is in no active distress currently. NEUROLOGIC: Alert and oriented. LUNGS: Diffuse wheezing on inspiration and expiration. Scattered rhonchi, left greater than right. CARDIOVASCULAR: Regular rate and rhythm. Normal S1, S2. ABDOMEN: Soft. Positive bowel sounds. GENITOURINARY: Deferred. EXTREMITIES: Lower extremities with no significant edema. LABORATORY: White cell count 12.3, hemoglobin 11.1, hematocrit 34.8, platelet count 195. Chemistry shows improvement in BUN and creatinine at 22 and 1.19. ASSESSMENT: 1. Chronic obstructive pulmonary disease exacerbation with history of asthma. 2. Left lower lobe pneumonia. 3. Acute kidney injury, improving. 4. Hypertension. 5. Obstructive sleep apnea .On CPAP 6. Hypothyroidism. 7. Gastroesophageal reflux disease. PLAN: At this time, we will continue the current antibiotics. The patient did get three doses of IV steroids. I will place her on p.o. steroids today at 40 mg of prednisone. We will monitor and see how she does with this. Additionally, the patient lives out of town for the last three years and used to see Dr. España. She has moved back, so we are going to try to get her reestablished with Dr. España. Additionally, she has been started on Symbicort by her primary care physician in [place] for her COPD. She does not have nebulizers for home, so I am going to try to get her a nebulizer for home utilizing DuoNeb 4 times per day while acutely ill and then p.r.n. once she improves. There is a possibility that she will need DuoNeb scheduled on a normal basis once she improves from her acute illness as well. I discussed with her following up eggs inspector. She did see Dr. Vásquez in the past, so my recommendation would be for her to make a followup appointment with him as well the next time he comes to [place]. #[id number] [facility]
[2019-10-21] MEDS ORDERED: SODIUM CHL 0.9% 50ML MIN-BAG+ 50 ML IVPB ONE (15:18)
[2019-10-21] MEDS ORDERED: cefTRIAXone SODIUM 1 GM VIAL ONE (15:18)
[2019-10-21] MEDS: cefTRIAXone SODIUM 1 GM in SODIUM CHL 0.9% 50ML MIN-BAG+ 50 ML IVPB SCH (15:29)
[2019-10-21] MEDS: AMITRIPTYLINE HCL 25 MG TAB PO SCH (21:22)
[2019-10-22] MEDS: OMEPRAZOLE CAP 20 MG CAP PO SCH (06:25)
[2019-10-22] MEDS: LEVOTHYROXINE SODIUM 0.075 MG TAB PO SCH (06:25)
[2019-10-22] MEDS ORDERED: SODIUM CHLORIDE 0.9% 250ML 250 ML ONE (07:32)
[2019-10-22] MEDS ORDERED: AZITHROMYCIN IV 500 MG VIAL IVPB ONE (07:34)
[2019-10-22] MEDS: RIVASTIGMINE TARTRATE 3 MG PO SCH ×2 (08:17→20:54)
[2019-10-22] MEDS: CLOPIDOGREL 75 MG TAB PO SCH (08:18)
[2019-10-22] MEDS: PROPRANOLOL HCL 20 MG TAB PO SCH (08:18)
[2019-10-22] MEDS: ASPIRIN (ENTERIC COATED) 81 MG TAB PO SCH (08:18)
[2019-10-22] MEDS: BENZONATATE PERLES 100 MG CAP PO SCH ×3 (08:18→20:55)
[2019-10-22] MEDS: amLODIPine BESYLATE 5 MG TAB PO SCH (08:18)
[2019-10-22] MEDS: OXYBUTYNIN CL 5 MG TAB PO SCH ×3 (08:18→20:53)
[2019-10-22] MEDS: DULoxetine HCL 30 MG CAP PO SCH (08:18)
[2019-10-22] MEDS: MONTELUKAST 10 MG TAB PO SCH (08:19)
[2019-10-22] MEDS: ENOXAPARIN SODIUM 40 MG/0.4 ML SYG SUBCU SCH (08:19)
[2019-10-22] MEDS: guaiFENesin ER TAB 600 MG TAB PO SCH ×2 (08:19→20:54)
[2019-10-22] MEDS: predniSONE 20 MG TAB PO SCH (08:19)
[2019-10-22] MEDS: IPRATROPIUM/ALBUTEROL 3 ML VIAL INH SCH ×4 (08:31→21:06)
[2019-10-22] MEDS: BUDESONIDE NEBS 0.25 MG/2 ML INH NEB SCH ×2 (08:31→21:06)
[2019-10-22] MEDS: AZITHROMYCIN IV 500 MG in SODIUM CHLORIDE 0.9% 250ML 250 ML IVPB SCH (10:23)
[2019-10-22] MEDS ORDERED: SODIUM CHL 0.9% 50ML MIN-BAG+ 50 ML IVPB ONE (10:43)
[2019-10-22] MEDS ORDERED: cefTRIAXone SODIUM 1 GM VIAL ONE (10:44)
[2019-10-22] MEDS: cefTRIAXone SODIUM 1 GM in SODIUM CHL 0.9% 50ML MIN-BAG+ 50 ML IVPB SCH (15:30)
[2019-10-22] MEDS: IV SET AND CAP CHANGE INJ INJ SCH (15:31)
--- NOTE | 2019-10-22 20:29 | PN ---
DATE: 10/22/19 SUPERVISING PHYSICIAN: Driss España M.D. SUBJECTIVE: The patient states she is breathing well. Still having a lot of coughing and she gets short of breath with exertion, but overall feels better than she did. OBJECTIVE: VITAL SIGNS: Blood pressure 136/83, heart rate 86, respiratory rate 18, temperature 97.0, oxygen saturation 99% on room air. GENERAL: Ms. Puentes is a 69 year-old female who is in no active distress currently. NEUROLOGIC: The patient is alert and oriented. LUNGS: With diffuse wheezing but less pronounced than yesterday. CARDIOVASCULAR: Regular rate and rhythm. Normal S1 and S2. ABDOMEN: Soft. Positive bowel sounds. EXTREMITIES: Lower extremities with no edema. ASSESSMENT: 1. Chronic obstructive pulmonary disease exacerbation with history of asthma. 2. Left lower lobe pneumonia. 3. Acute kidney injury. 4. Hypertension. 5. Obstructive sleep apnea on CPAP. 6. Hypothyroidism. 7. Gastroesophageal reflux disease. PLAN: She seems to be tolerating the prednisone well. Will continue the 40 mg daily for now. Continue the current antibiotics. If she remains stable overnight, will discharge tomorrow on a tapering dose of prednisone as well as try to get her established with Dr. España and a nebulizer machine for at home as well. I still recommend that she see Dr. Vásquez as an outpatient as well. #[id number] [facility]
[2019-10-22] MEDS: AMITRIPTYLINE HCL 25 MG TAB PO SCH (20:53)
[2019-10-22] MEDS: SODIUM CHLORIDE 0.9% (FLUSH) 10 ML SYG IV SCH (20:54)
[2019-10-23] MEDS: OMEPRAZOLE CAP 20 MG CAP PO SCH (05:51)
[2019-10-23] MEDS: LEVOTHYROXINE SODIUM 0.075 MG TAB PO SCH (05:51)
[2019-10-23] MEDS: IPRATROPIUM/ALBUTEROL 3 ML VIAL INH SCH (07:20)
[2019-10-23] MEDS: BUDESONIDE NEBS 0.25 MG/2 ML INH NEB SCH (07:20)
--- NOTE | 2019-10-23 07:28 | RAD ---
EXAM DESCRIPTION: Chest,2 Views CLINICAL HISTORY: LLL pneumonia, COPD COMPARISON: October 20, 2019 FINDINGS: The cardiomediastinal silhouette is unremarkable. Postoperative changes in the cervical spine only partially visualized. Spinal stimulator leads extending superiorly to the mid thoracic spine. Coarse interstitial prominence in the left lung base is unchanged from the previous exam. No new airspace consolidation. No pleural effusion. The lung volumes are at the upper limits of normal range. There is no pneumothorax or acute fracture. IMPRESSION: Coarse interstitial opacity in the left lung base, stable or only slightly improved from October 20, 2019. Differential considerations include persistent but probably resolving pneumonia versus subsegmental atelectasis or scarring. No new abnormality. Electronically signed by: Kyler Schroeder MD 10/23/2019 7:26 AM [facility]
[2019-10-23] MEDS ORDERED: SODIUM CHLORIDE 0.9% 250ML 250 ML ONE (09:26)
[2019-10-23] MEDS ORDERED: AZITHROMYCIN IV 500 MG VIAL IVPB ONE (09:26)
[2019-10-23] MEDS: PROPRANOLOL HCL 20 MG TAB PO SCH (09:32)
[2019-10-23] MEDS: DULoxetine HCL 30 MG CAP PO SCH (09:32)
[2019-10-23] MEDS: OXYBUTYNIN CL 5 MG TAB PO SCH (09:32)
[2019-10-23] MEDS: ASPIRIN (ENTERIC COATED) 81 MG TAB PO SCH (09:32)
[2019-10-23] MEDS: CLOPIDOGREL 75 MG TAB PO SCH (09:32)
[2019-10-23] MEDS: MONTELUKAST 10 MG TAB PO SCH (09:32)
[2019-10-23] MEDS: guaiFENesin ER TAB 600 MG TAB PO SCH (09:33)
[2019-10-23] MEDS: BENZONATATE PERLES 100 MG CAP PO SCH (09:33)
[2019-10-23] MEDS: amLODIPine BESYLATE 5 MG TAB PO SCH (09:33)
[2019-10-23] MEDS: predniSONE 20 MG TAB PO SCH (09:34)
[2019-10-23] MEDS: SODIUM CHLORIDE 0.9% (FLUSH) 10 ML SYG IV SCH (09:36)
[2019-10-23] MEDS: ENOXAPARIN SODIUM 40 MG/0.4 ML SYG SUBCU SCH (09:36)
[2019-10-23] MEDS: RIVASTIGMINE TARTRATE 3 MG PO SCH (09:37)
[2019-10-23] MEDS: AZITHROMYCIN IV 500 MG in SODIUM CHLORIDE 0.9% 250ML 250 ML IVPB SCH (09:38)
--- NOTE | 2019-10-23 14:45 | DS ---
SUPERVISING PHYSICIAN: Driss España MD ADMISSION DIAGNOSIS 1. Sepsis secondary to community acquired pneumonia. 2. Asthma exacerbation. 3. Electrolyte imbalance. 4. Renal insufficiency. 5. Hypertension. 6. Hypothyroidism. 7. Obstructive sleep apnea on CPAP. 8. Diverticulosis without signs of diverticulitis. 9. Gastroesophageal reflux disease. 10. Chronic lower back pain with a neurostimulator. 11. Chronic fibromyalgia. 12. Rheumatoid arthritis. 13. History of migraine headaches. 14. Essential tremor. 15. B12 deficiency. DISCHARGE DIAGNOSIS: 1. Chronic obstructive pulmonary disease exacerbation with a history of asthma. 2. Left lower lobe pneumonia. 3. Acute kidney injury. 4. Hypertension. 5. Obstructive sleep apnea on CPAP. 6. Hypothyroidism. 7. Gastroesophageal reflux disease. HOSPITAL COURSE: This is a 69-year-old female with a history of asthma, chronic obstructive pulmonary disease and sleep apnea who went to the clinic today for evaluation of fever and malaise with temperature of 103. She was referred for admission to the Emergency Room. She was having productive sputum that was greenish in color and severe wheezing as well. In the Emergency Room, she was noted to have a fever of 103.1 and O2 saturations were about 88% on room air. She was placed on oxygen and O2 saturations improved. Chest x-ray initially did not show any acute cardiopulmonary process. She was given steroids as well as nebulizers. Flu screen was negative. White count was normal upon admission. The patient did have elevation of BUN and creatinine as well with creatinine 1.31. When she was admitted, a subsequent chest x-ray showed a left lower lobe pneumonia. She was on steroids initially and nebulizers, but given about 3 doses of IV steroids because she said it makes her hallucinate a little bit. She responded well to the steroids as well as the nebulizers and the Vest therapy. She started to cough up sputum more frequently. Her white count eventually shot up and got as high as 12.3, but then resolved to 10.4. I put her on p.o. steroids with prednisone at 40 mg. She tolerated that quite well. Therefore, today, she will be discharged in stable condition. I have set up a nebulizer machine for her through [facility] and she will pick that up. She will need to use DuoNeb 4 times a day with that. I put her on a tapering dose of prednisone for which she will use 30 mg for 3 days, 20 mg for 3 days and then 10 mg for 3 days and the discontinue. I have also written for Mucinex, doxycycline for antibiotic therapy, Pulmicort to be utilized with her nebulizer and Tessalon Perles. [facility] just [facility], so she will reestablish with Dr. España. I have her an appointment with Dr. España on 10/29/19 at 09:30 in the morning. Diet will be as tolerated. Activity is to increase as tolerated. She may need a repeat chest x-ray as an outpatient to ensure resolution of the pneumonia. #[id number] MTDD
[2019-10-23 16:24] VITALS: BP 109/75; TEMP 98.6
[2019-10-23 17:54] VITALS: O2SAT 97
== END 2019-10-23 13:05 | disposition home or self-care (01) | DRG 190 ==
LOC: ER 13:31 → OBSVTOIN 15:44 → MS 15:44
PROVIDERS: ADMIT Nurse Practitioner Family; ATTEND Nurse Practitioner
DX: J44.1 Chronic obstructive pulmonary disease with (acute) exacerbation (principal); J18.9 Pneumonia, unspecified organism; N17.9 Acute kidney failure, unspecified; E87.1 Hypo-osmolality and hyponatremia; J44.0 Chronic obstructive pulmonary disease with (acute) lower respiratory infection; I10 Essential (primary) hypertension; G47.33 Obstructive sleep apnea (adult) (pediatric); E03.9 Hypothyroidism, unspecified; K21.9 Gastro-esophageal reflux disease without esophagitis; G89.29 Other chronic pain; M54.5 Low back pain; M06.9 Rheumatoid arthritis, unspecified; E53.8 Deficiency of other specified B group vitamins; G25.0 Essential tremor; R09.02 Hypoxemia; E78.5 Hyperlipidemia, unspecified; G62.9 Polyneuropathy, unspecified; Z79.891 Long term (current) use of opiate analgesic; Z79.02 Long term (current) use of antithrombotics/antiplatelets; Z79.82 Long term (current) use of aspirin; Z88.8 Allergy status to other drugs, medicaments and biological substances; Z88.6 Allergy status to analgesic agent; Z88.5 Allergy status to narcotic agent; Z88.0 Allergy status to penicillin; Z88.2 Allergy status to sulfonamides; Z87.891 Personal history of nicotine dependence; Z79.899 Other long term (current) drug therapy

== ENCOUNTER → 2019-12-01 | Outpatient (CLI) | payer MEDICARE, OTHER ==
--- NOTE | 2019-12-01 10:41 | RAD ---
EXAM DESCRIPTION: Pelvis CLINICAL HISTORY: PAIN IN RIGHT HIP COMPARISON: None. TECHNIQUE: AP pelvis FINDINGS: Pedicle screw fusion of the lower lumbar spine is observed. Numerous phleboliths are observed in the pelvis. Degenerative changes are observed in the right sacroiliac joint. The proximal femurs are intact. No fracturing is detected. IMPRESSION: 1. Pedicle screw fusion of the lower lumbar spine is observed. 2. Degenerative changes are observed in the right sacroiliac joint. Electronically signed by: Nikolas Wilson MD 12/01/2019 10:39 AM [facility]
--- NOTE | 2019-12-01 10:42 | RAD ---
EXAM DESCRIPTION: Hip,Right 2 Views CLINICAL HISTORY: PAIN IN RIGHT HIP COMPARISON: None. TECHNIQUE: AP and frog lateral right FINDINGS: Degenerative calcification is observed along the greater trochanter. The proximal femur and acetabulum appear normal. Degenerative changes are observed in the right sacroiliac joint and in the pubic symphysis. IMPRESSION: The hip is unremarkable. Degenerative changes are observed in the right sacroiliac joint. Electronically signed by: Nikolas Wilson MD 12/01/2019 10:40 AM [facility]
== END ==
LOC: RAD 09:09
PROVIDERS: ATTEND Orthopaedic Surgery
DX: M47.898 Other spondylosis, sacral and sacrococcygeal region (principal); Z98.1 Arthrodesis status

== ENCOUNTER 2020-03-03 16:34 | Emergency (ER) | payer MEDICARE, OTHER ==
--- NOTE | 2020-03-03 17:35 | ED.PDOC ---
History of Present Illness - General Chief Complaint: General Stated Complaint: bilateral leg swelling with pain in rt lower leg Time Seen by Provider: 03/03/20 17:28 Source: patient, RN notes reviewed, Vital Signs reviewed, family, RN/MD Exam Limitations: no limitations - History of Present Illness Initial Comments: Pt is a 70 yo female that presents to ED for 3 day h/o swelling and pain to top of right foot. States pain is worse with weight bearing. Denies any fall, injury to the area. Denies calf pain, fever or knee pain. Denies previous h/o DT or PE. Allergies/Adverse Reactions: Allergies Estradiol [From Depo-Estradiol] Allergy (Unknown, Verified 10/21/19 21:41) Rash Obtained from ' note Aspirin Allergy (Verified 10/21/19 21:41) Atorvastatin [From Lipitor] Allergy (Verified 10/21/19 21:41) Beta Adrenergic Blockers Allergy (Verified 10/21/19 21:41) Gabapentin [From Neurontin] Allergy (Verified 10/21/19 21:41) Hydrocodone Allergy (Verified 10/21/19 21:41) Penicillins Allergy (Verified 10/21/19 21:41) Pregabalin [From Lyrica] Allergy (Verified 10/21/19 21:41) Sulfa Drugs Allergy (Verified 10/21/19 21:41) Pravastatin Adverse Reaction (Verified 10/21/19 21:41) steroids Adverse Reaction (Uncoded 10/21/19 21:40) Home Medications: Ambulatory Orders RX: Tramadol HCl 100 mg PO Q6H PRN 02/16/14 RX: Levothyroxine Sodium [Synthroid] 75 mcg PO DAILY 01/06/16 RX: amLODIPine BESYLATE [Norvasc] 10 mg PO DAILY 01/06/16 RX: Propranolol HCl 10 mg PO DAILY 01/19/17 RX: Amitriptyline HCl [Elavil] 25 mg PO BEDTIME 10/19/19 RX: Aspirin [Aspirin Adult Low Dose] 81 mg PO DAILY 10/19/19 RX: Clopidogrel Bisulfate [Plavix] 75 mg PO QD 10/19/19 RX: DULoxetine HCL [Cymbalta] 30 mg PO DAILY 10/19/19 RX: Montelukast [Singulair] 10 mg PO DAILY 10/19/19 RX: Omeprazole 40 mg PO DAILY 10/19/19 RX: Oxybutynin Chloride 5 mg PO BID 10/19/19 RX: Rivastigmine Tartrate 3 mg PO BID 10/19/19 RX: guaiFENesin ER TAB [Mucinex Tab] 1,200 mg PO BID 30 Days #120 tab 10/23/19 RX: Benzonatate Perles [Tessalon Perles] 200 mg PO TID PRN 03/03/20 RX: Ipratropium/Albuterol [Duoneb] 3 ml INH RTQID PRN 03/03/20 RX: Rosuvastatin Calcium 10 mg PO DAILY 03/03/20 RX: diphenhydrAMINE HCL [Benadryl] 25 mg PO Q4HR 03/03/20 Review of Systems - Review of Systems Constitutional: Denies: chills, fever, weakness EENTM: Denies: nose congestion, throat pain Respiratory: Denies: cough, short of breath Cardiology: Denies: chest pain, palpitations, syncope Gastrointestinal/Abdominal: Denies: abdominal pain, diarrhea, nausea, vomiting Genitourinary: Denies: dysuria, frequency, hematuria Musculoskeletal: States: see HPI Neurological: Denies: headache, paresthesia All other Systems: Reviewed and Negative Past Medical History (General) - Patient Medical History Hx Seizures: No Hx Stroke: Yes - 1998 Hx Asthma: Yes Hx of COPD: No Hx Cardiac Disorders: Yes Hx Congestive Heart Failure: No Hx Pacemaker: No Hx Hypertension: Yes Hx Thyroid Disease: Yes Hx Diabetes: No Hx Cancer: No Hx Hepatitis C: No Hx MRSA: No Surgical History: cholecystectomy, Hysterectomy - Vaccination History Hx Tetanus, Diphtheria Vaccination: Yes Hx Influenza Vaccination: Yes Hx Pneumococcal Vaccination: Yes Immunizations Up to Date: Yes - Social History Hx Tobacco Use: No Hx Chewing Tobacco Use: No Hx Alcohol Use: No Hx Substance Use: No Hx Substance Use Treatment: No Hx Depression: No Hx Physical Abuse: No - childhood Hx Emotional Abuse: No Hx Suspected Abuse: No - Female History Patient is a Female of Child Bearing Age (10 -59 yrs old): No Patient : No Family Medical History - Family History Father Family History: Unknown Hx Family;Other: Adopted Physical Exam - Physical Exam General Appearance: Alert, Comfortable, No apparent distress Neck: non-tender, full range of motion, supple Respiratory: chest non-tender, lungs clear, normal breath sounds, no respiratory distress, no accessory muscle use Cardiovascular/Chest: regular rate, rhythm, no murmur Gastrointestinal/Abdominal: non tender, soft, no pulsatile mass Extremity: other - No pitting edema. mild edema and tenderness to lateral portion of top of right foot. 2+ DP and PT pulses. No erythema or warmth Neurologic: no motor/sensory deficits, alert, normal mood/affect Skin Exam: normal color Progress - Progress Progress: 03/03/20 19:13 D/W radiologist. Pt has DVT RLE on US. 03/03/20 19:18 I have d/w Salome De La Rosa who works with patients PCP, Dr. España. She will get Xa relto starter pack from clinic for patient to start and they will follow in clinic this week. Pt agreeable to plan. I have given her the starter pack in ED and instructed to start tonight and instructions on how to take medications. She will call pcp and schedule f/u in 1-2 days for continued evaluation. Departure - Departure Clinical Impression: Leg edema, right DVT (deep venous thrombosis) Qualifiers: DVT location: lower extremity Affected thrombotic vein of extremity: unspecified vein of extremity Chronicity: acute Laterality: right Qualified Code(s): I82.401 - Acute embolism and thrombosis of unspecified deep veins of right lower extremity Time of Disposition: 19:22 Disposition: Discharge to Home or Self Care Condition: Good Departure Forms: ED Discharge - Pt. Copy, Patient Portal Self Enrollment Instructions: Deep Vein Thrombosis (Blood Clots in the Legs) (DC) Referrals: Driss España MD [Primary Care Provider] - 1-2 Weeks Home Medications: Ambulatory Orders RX: Tramadol HCl 100 mg PO Q6H PRN 02/16/14 RX: Levothyroxine Sodium [Synthroid] 75 mcg PO DAILY 01/06/16 RX: amLODIPine BESYLATE [Norvasc] 10 mg PO DAILY 01/06/16 RX: Propranolol HCl 10 mg PO DAILY 01/19/17 RX: Amitriptyline HCl [Elavil] 25 mg PO BEDTIME 10/19/19 RX: Aspirin [Aspirin Adult Low Dose] 81 mg PO DAILY 10/19/19 RX: Clopidogrel Bisulfate [Plavix] 75 mg PO QD 10/19/19 RX: DULoxetine HCL [Cymbalta] 30 mg PO DAILY 10/19/19 RX: Montelukast [Singulair] 10 mg PO DAILY 10/19/19 RX: Omeprazole 40 mg PO DAILY 10/19/19 RX: Oxybutynin Chloride 5 mg PO BID 10/19/19 RX: Rivastigmine Tartrate 3 mg PO BID 10/19/19 RX: guaiFENesin ER TAB [Mucinex Tab] 1,200 mg PO BID 30 Days #120 tab 10/23/19 RX: Benzonatate Perles [Tessalon Perles] 200 mg PO TID PRN 03/03/20 RX: Ipratropium/Albuterol [Duoneb] 3 ml INH RTQID PRN 03/03/20 RX: Rosuvastatin Calcium 10 mg PO DAILY 03/03/20 RX: diphenhydrAMINE HCL [Benadryl] 25 mg PO Q4HR 03/03/20
--- NOTE | 2020-03-03 17:51 | RAD ---
EXAM DESCRIPTION: Foot,Right 3 Views CLINICAL HISTORY: 70 years, Female, foot pain COMPARISON: None TECHNIQUE: Three views right foot FINDINGS: Three views right foot demonstrate normal bony alignment. Diffuse soft tissue and subcutaneous edema involving what appears to be entirety of the foot is noted. Extensive calcaneal spurring at the Achilles tendon insertion into a much lesser extent at the plantar arch origin is noted. Minor degenerative changes involving the midfoot structures dorsally is evident. No fracture or dislocation or destructive bony process noted. IMPRESSION: Diffuse cutaneous and subcutaneous edematous changes involving essentially the entirety of the foot. Calcaneal spurring and mild degenerative changes without acute bony injury fracture or dislocation noted Electronically signed by: Cal Monreal MD 03/03/2020 5:50 PM CDT
--- NOTE | 2020-03-03 19:09 | US ---
EXAM DESCRIPTION: US Venous, Lower Extremity RT CLINICAL HISTORY: 70 years Female DVT TECHNIQUE: Real-time Duplex ultrasound of the right lower extremity veins with 2-D vides scale, color Doppler flow, and spectral waveform analysis. COMPARISON: 03/27/2016 FINDINGS: There is thrombosis of the right posterior tibial vein. The visualized right common femoral, proximal deep femoral, femoral, popliteal, and peroneal veins are patent without thrombus. Normal compressibility, augmentation response, and Doppler waveforms. No visualized soft tissue mass or fluid collection. IMPRESSION: Thrombosis of the right posterior tibial vein. No other right lower extremity deep vein thrombosis. THIS REPORT CONTAINS FINDINGS THAT MAY BE CRITICAL TO PATIENT CARE: The findings were verbally discussed via telephone conference with Dr. Gilmar Tracey by Dr. Corrie Courtney on 03/03/2020 7:08 PM CDT . The results were acknowledged and understood. Electronically signed by: Corrie Courtney MD 03/03/2020 7:08 PM CDT
[2020-03-03 20:22] VITALS: BP 147/71; TEMP 98.3; O2SAT 97
== END 2020-03-03 20:15 | disposition home or self-care (01) ==
LOC: ER 16:34
DX: I82.401 Acute embolism and thrombosis of unspecified deep veins of right lower extremity (principal); R60.0 Localized edema; I10 Essential (primary) hypertension; Z86.73 Personal history of transient ischemic attack (TIA), and cerebral infarction without residual deficits; Z79.899 Other long term (current) drug therapy; Z79.82 Long term (current) use of aspirin

== ENCOUNTER → 2020-03-08 | Outpatient (CLI) | payer MEDICARE, OTHER ==
--- NOTE | 2020-03-08 16:43 | CT ---
EXAM DESCRIPTION: Cervical Spine CLINICAL HISTORY: RADICULOPATHY CERVICAL SPINE COMPARISON: None Available. TECHNIQUE: Cervical CT is performed with thin-section axial imaging. MPRs are created and reviewed as well. FINDINGS: Axial bone window images reveal intact ring of C1. No significant spinal stenosis. No abnormal widening of the atlantodens interval. No fracture of the vertebral bodies or transverse processes or posterior elements. Lung apices appear clear. No cervical mass or adenopathy. Anterior cervical plate and screws consistent with previous anterior interbody fusion C4-C7 with surgically absent posterior elements. Large anterior osteophytes are seen at C2-3 and C3-4 levels. Degenerative narrowing at the atlantodens interval with prominent spurring. Loss of disc height at the upper thoracic disc levels with prominent anterior spurring. Lucent areas in the vertebral bodies C4-C6 could be postoperative osteolysis or hemangioma. Another hemangioma in the upper T-spine. Moderate neuroforaminal narrowing on the right at C5-6 related to facet spurring. On the left, uncinate spurring causes [id number] neural foraminal narrowing at C4-5 and C5-6. Coronal reformatted images show normal atlantooccipital and atlantoaxial alignment. The base of the dens is intact as is the body of C2. Intact lateral masses. IMPRESSION: Postoperative and degenerative changes as described. This exam was performed according to our departmental dose-optimization program, which includes automated exposure control, adjustment of the mA and/or kV according to patient size and/or use of iterative reconstruction technique. Total DLP equals 378.6 mGycm. Electronically signed by: Demond Chow MD 03/08/2020 4:42 PM CDT
== END ==
LOC: CT 14:58
PROVIDERS: ATTEND Psychiatry & Neurology Neurology
DX: M47.22 Other spondylosis with radiculopathy, cervical region (principal); Z98.890 Other specified postprocedural states

== ENCOUNTER → 2020-03-11 | Outpatient (CLI) | payer MEDICARE, OTHER ==
--- NOTE | 2020-03-12 08:35 | CT ---
EXAM DESCRIPTION: Lumbar Spine CLINICAL HISTORY: 70 years, Female, LUIMBAR RADICULOPATHY COMPARISON: MRI November 03, 2016 TECHNIQUE: CT of the lumbar spine was performed without IV contrast. This exam was performed according to our departmental dose-optimization program, which includes automated exposure control, adjustment of the mA and/or kV according to patient size and/or use of iterative reconstruction technique. FINDINGS: Extensive multilevel postoperative changes in the lumbar spine including right-sided pedicle screws extending from L2 through S1 and left-sided pedicle screws extending from L2 through L5. Discectomy and interbody spacer devices at L2-3 and L3-4 with anterior fusion at the same levels. Grade 1 anterolisthesis and partial fusion L5-S1, discectomy with interbody spacer device which is displaced anteriorly, unchanged from the previous MRI. The facet joints and posterior elements are fused or partially fused from L2 through S1. Laminectomy defects, ghost tract from previously removed left S1 pedicle screw. Spinal stimulator leads are partially visualized. The pedicle screws are well-positioned. No vertebral body fracture. Scarring is noted posteriorly, the paraspinal and visualized retroperitoneal soft tissues are otherwise unremarkable for noncontrast technique. T12-L1: disc space narrowing with vacuum disc phenomenon, anterior disc bulging and bilateral facet joint degeneration. No central canal or neuroforaminal stenosis. L1-2: Grade 1 retrolisthesis with bilateral facet joint degeneration and mild widening of the facet joint spaces bilaterally. No disc space narrowing. Retrolisthesis and facet joint degeneration results in mild to moderate bilateral neural foraminal stenosis. L2-3: postoperative changes with mild bilateral facet joint degeneration and facet joint space widening resulting in only slight bilateral neuroforaminal stenosis. L3-4: postoperative changes with partial fusion and hypertrophy of the facet joints but no central canal or neuroforaminal stenosis. L4-5: postoperative changes with facet joint effusions/hypertrophy. No recurrent disc bulging, central canal or neuroforaminal stenosis. L5-S1: Postoperative changes with grade 1 anterolisthesis and anterior displacement of the interbody spacer device as described previously. Bilateral facet joint effusions/hypertrophy without central canal or significant neural foraminal stenosis. IMPRESSION: Extensive multilevel postoperative changes in the lumbar spine extending from L2-3 through L5-S1 with anterior migration of an interbody spacer device at L5-S1, stable from October,. No additional hardware or other surgical complication. Degenerative disc and facet joint disease at T12-L1 and L1-2 resulting in mild to moderate neuroforaminal stenosis at L1-2. Electronically signed by: Kyler Schroeder MD 03/12/2020 8:34 AM CDT
== END ==
LOC: CT 14:47
PROVIDERS: ATTEND Psychiatry & Neurology Neurology
DX: M54.16 Radiculopathy, lumbar region (principal); M51.35 Other intervertebral disc degeneration, thoracolumbar region; M46.95 Unspecified inflammatory spondylopathy, thoracolumbar region; M48.061 Spinal stenosis, lumbar region without neurogenic claudication; M54.12 Radiculopathy, cervical region; T84.226D Displacement of internal fixation device of vertebrae, subsequent encounter

== ENCOUNTER → 2020-04-15 | Outpatient (CLI) | payer MEDICARE, OTHER | LOC: NC 14:20 | PROVIDERS: ATTEND Family Medicine | DX: R30.0 Dysuria (principal) ==

== ENCOUNTER → 2020-05-26 | Outpatient (CLI) | payer MEDICARE, OTHER | LOC: NC 10:06 | PROVIDERS: ATTEND Family Medicine | DX: Z00.00 Encounter for general adult medical examination without abnormal findings (principal); I82.441 Acute embolism and thrombosis of right tibial vein; J44.9 Chronic obstructive pulmonary disease, unspecified; I10 Essential (primary) hypertension; D64.9 Anemia, unspecified; Z86.73 Personal history of transient ischemic attack (TIA), and cerebral infarction without residual deficits; Z13.1 Encounter for screening for diabetes mellitus ==

== ENCOUNTER 2020-07-03 19:50 | Emergency (ER) | payer MEDICARE, OTHER ==
--- NOTE | 2020-07-03 20:06 | ED.PDOC ---
History of Present Illness - General Time Seen by Provider: 07/03/20 19:57 - History of Present Illness Initial Comments: 70 yo F with a PMH of DVT and stroke comes in with the c/c of chest pain x 4 days. States the pain is substernal, worse with movement, but also feels like an elephant sitting on her chest. no shortness of breath. Finished xalerto after three months for dvt. complete course one month ago. Denies n/v/d. no fever. no back pain. no syncope or dizziness. Patient has a co founder and cto in [place], has not seen them for 3 years. Allergies/Adverse Reactions: Allergies Estradiol [From Depo-Estradiol] Allergy (Unknown, Verified 10/21/19 21:41) Rash Obtained from ' note Atorvastatin [From Lipitor] Allergy (Verified 10/21/19 21:41) Beta Adrenergic Blockers Allergy (Verified 10/21/19 21:41) Gabapentin [From Neurontin] Allergy (Verified 10/21/19 21:41) Hydrocodone Allergy (Verified 10/21/19 21:41) Penicillins Allergy (Verified 10/21/19 21:41) Pregabalin [From Lyrica] Allergy (Verified 10/21/19 21:41) Sulfa Drugs Allergy (Verified 10/21/19 21:41) Pravastatin Adverse Reaction (Verified 10/21/19 21:41) steroids Adverse Reaction (Uncoded 10/21/19 21:40) Home Medications: Ambulatory Orders Tramadol HCl 100 mg PO Q6H PRN 02/16/14 Levothyroxine Sodium [Synthroid] 75 mcg PO DAILY 01/06/16 amLODIPine BESYLATE [Norvasc] 10 mg PO DAILY 01/06/16 Propranolol HCl 10 mg PO DAILY 01/19/17 Amitriptyline HCl [Elavil] 25 mg PO BEDTIME 10/19/19 Aspirin [Aspirin Adult Low Dose] 81 mg PO DAILY 10/19/19 Clopidogrel Bisulfate [Plavix] 75 mg PO QD 10/19/19 DULoxetine HCL [Cymbalta] 30 mg PO DAILY 10/19/19 Montelukast [Singulair] 10 mg PO DAILY 10/19/19 Omeprazole 40 mg PO DAILY 10/19/19 Oxybutynin Chloride 5 mg PO BID 10/19/19 Rivastigmine Tartrate 3 mg PO BID 10/19/19 guaiFENesin ER TAB [Mucinex Tab] 1,200 mg PO BID 30 Days #120 tab 10/23/19 Benzonatate Perles [Tessalon Perles] 200 mg PO TID PRN 03/03/20 Ipratropium/Albuterol [Duoneb] 3 ml INH RTQID PRN 03/03/20 Rosuvastatin Calcium 10 mg PO DAILY 03/03/20 diphenhydrAMINE HCL [Benadryl] 25 mg PO Q4HR 03/03/20 Review of Systems - Review of Systems Constitutional: Denies: diaphoresis, fever, malaise, weakness EENTM: Denies: eye pain, blurred vision, double vision, ear pain, throat pain, throat swelling Respiratory: Denies: cough, orthopnea, short of breath, stridor, wheezing Cardiology: States: chest pain. Denies: edema, palpitations, syncope Gastrointestinal/Abdominal: Denies: abdominal pain, constipation, diarrhea, nausea, vomiting Genitourinary: Denies: discharge, dysuria, frequency, hematuria Musculoskeletal: Denies: back pain, joint pain, joint swelling, muscle stiffness Skin: Denies: change in color, change in hair/nails, dryness, lesions, lumps Neurological: Denies: headache, numbness, paresthesia, pre-existing deficit, seizure, tingling, tremors, weakness Endocrine: Denies: increased hunger, increased thirst, increased urine, unexplained weight gain, unexplained weight loss Hematologic/Lymphatic: Denies: anemia, blood clots, easy bleeding, easy bruising Past Medical History (General) - Patient Medical History Hx Seizures: No Hx Stroke: Yes - 1998 Hx Asthma: Yes Hx of COPD: No Hx Cardiac Disorders: Yes Hx Congestive Heart Failure: No Hx Pacemaker: No Hx Hypertension: Yes Hx Thyroid Disease: Yes Hx Diabetes: No Hx Cancer: No Hx Hepatitis C: No Hx MRSA: No - Vaccination History Hx Tetanus, Diphtheria Vaccination: Yes Hx Influenza Vaccination: Yes Hx Pneumococcal Vaccination: Yes - Social History Hx Tobacco Use: No Hx Chewing Tobacco Use: No Hx Alcohol Use: No Hx Substance Use: No Hx Substance Use Treatment: No Hx Depression: No Hx Physical Abuse: No - childhood Hx Emotional Abuse: No Hx Suspected Abuse: No - Female History Patient : No Family Medical History - Family History Father Family History: Unknown Hx Family;Other: Adopted Physical Exam - Physical Exam General Appearance: Alert, Comfortable, No apparent distress Eye Exam: bilateral normal Ears, Nose, Throat: hearing grossly normal, normal ENT inspection, normal pharynx Neck: non-tender, full range of motion, supple, normal inspection Respiratory: lungs clear, normal breath sounds, no respiratory distress, no accessory muscle use, other - chest tender to palpation, pain reproduced Cardiovascular/Chest: normal peripheral pulses, regular rate, rhythm, no edema, no gallop, no JVD, no murmur Peripheral Pulses: radial,right: 2+, radial,left: 2+, dorsalis pedis,right: 2+, dorsalis pedis,left: 2+ Gastrointestinal/Abdominal: normal bowel sounds, non tender, soft, no organomegaly, no pulsatile mass Rectal Exam: deferred Back Exam: normal inspection, no CVA tenderness, no vertebral tenderness Extremity: normal range of motion, non-tender, normal inspection, no pedal edema, no calf tenderness 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 I have reviewed medication, benefits, alternative and side effects. Patient decided to proceed with medication.Patient given 325 aspirin and nitro x1. 07/03/20 20:05 URINALYSIS Stat 07/03/20 20:15 EKG STAT 07/03/20 20:54 Sodium Chloride 0.9% 500Ml [NS 500ml] 500 ml IVS .QD Laboratory Results WBC 5.5 K/mm3 (4.8-10.8) 07/03/20 20:10 RBC 4.72 M/mm3 (4.20-5.40) 07/03/20 20:10 Hgb 13.8 gm/dL (12.0-16.0) 07/03/20 20:10 Hct 40.1 % (36.0-47.0) 07/03/20 20:10 MCV 84.9 fl (81.0-99.0) 07/03/20 20:10 MCH 29.2 pg (27.0-31.0) 07/03/20 20:10 MCHC 34.3 g/dL (33.0-37.0) 07/03/20 20:10 RDW 14.7 % (11.5-14.5) H 07/03/20 20:10 Plt Count 281 K/mm3 (130-400) 07/03/20 20:10 MPV 7.8 fl (7.40-10.4) 07/03/20 20:10 Absolute Neuts (auto) 2.80 K/uL (1.8-6.8) 07/03/20 20:10 Absolute Lymphs (auto) 2.00 K/uL (1.0-3.4) 07/03/20 20:10 Absolute Monos (auto) 0.40 K/uL (0.2-0.8) 07/03/20 20:10 Absolute Eos (auto) 0.30 K/uL (0.0-0.4) 07/03/20 20:10 Absolute Basos (auto) 0.10 K/uL (0.0-0.1) 07/03/20 20:10 Neutrophils % 50.4 % (42.0-78.0) 07/03/20 20:10 Lymphocytes % 36.1 % (20.0-50.0) 07/03/20 20:10 Monocytes % 7.2 % (2.0-9.0) 07/03/20 20:10 Eosinophils % 4.9 % (1.0-5.0) 07/03/20 20:10 Basophils % 1.4 % (0.0-2.0) 07/03/20 20:10 PT 9.9 SECONDS (9.0-10.9) 07/03/20 20:10 INR 1.00 (0.9-1.15) 07/03/20 20:10 PTT (SP) 23.2 SECONDS (21.8-31.6) 07/03/20 20:10 Sodium 137 mmol/L (135-145) 07/03/20 20:10 Potassium 3.7 mmol/L (3.6-5.0) 07/03/20 20:10 Chloride 104 mmol/L (101-111) 07/03/20 20:10 Carbon Dioxide 25 mmol/L (21-31) 07/03/20 20:10 Anion Gap 11.7 (12-18) L 07/03/20 20:10 BUN 16 mg/dL (7-18) 07/03/20 20:10 Creatinine 1.14 mg/dL (0.6-1.3) 07/03/20 20:10 BUN/Creatinine Ratio 14.0 (10-20) 07/03/20 20:10 Random Glucose 127 mg/dL (70-105) H 07/03/20 20:10 Serum Osmolality 276.6 mOsm/L (275-295) 07/03/20 20:10 Calcium 9.5 mg/dL (8.4-10.2) 07/03/20 20:10 Total Bilirubin 0.4 mg/dL (0.2-1.0) 07/03/20 20:10 AST 28 IU/L (10-42) 07/03/20 20:10 ALT 16 IU/L (10-60) 07/03/20 20:10 Alkaline Phosphatase 106 IU/L (42-121) 07/03/20 20:10 Troponin I < 0.02 ng/mL (0.01-0.05) 07/03/20 20:10 B-Natriuretic Peptide 79.9 pg/ml (0-100) 07/03/20 20:10 Serum Total Protein 7.5 gm/dL (6.4-8.2) 07/03/20 20:10 Albumin 4.2 g/dl (3.2-5.5) 07/03/20 20:10 Globulin 3.3 gm/dL (2.3-3.5) 07/03/20 20:10 Albumin/Globulin Ratio 1.3 (1.1-1.9) 07/03/20 20:10 EKG compared to 01/19/[address] changes, no significant change from prior ekg. cxr shows no acute disease, pending radiology read. 07/03/202047: called hospitalist Ronny Matthews, discussed case. Does not present like classic CAD, however, Heart score 5. He declined admission due to not having a co founder and cto. Will discuss with patient with transferring hospital. 07/03/[id number] discussed with hospitalist in [place], accepted for transfer. pain improved with sublingu nitroglycerin x 1. VSS. The data reviewed when caring for this patient included: nurse notes etc. The history and assessments from nurses notes were reviewed and considered, and the patient's home medication list was also reviewed and considered. My assessment and the results of testing completed here in the ED were discussed with the patient/family. All questions were answered, and they express understanding of my assessment and the plan. patient transferred in stable condition. Departure - Departure Clinical Impression: Chest pain Qualifiers: Chest pain type: unspecified Qualified Code(s): R07.9 - Chest pain, unspecified Time of Disposition: 22:02 Disposition: Transfer to Hospital Condition: Good Referrals: Driss España MD [Primary Care Provider] - 1-2 Days Home Medications: Ambulatory Orders Tramadol HCl 100 mg PO Q6H PRN 02/16/14 Levothyroxine Sodium [Synthroid] 75 mcg PO DAILY 01/06/16 amLODIPine BESYLATE [Norvasc] 10 mg PO DAILY 01/06/16 Propranolol HCl 10 mg PO DAILY 01/19/17 Amitriptyline HCl [Elavil] 25 mg PO BEDTIME 10/19/19 Aspirin [Aspirin Adult Low Dose] 81 mg PO DAILY 10/19/19 Clopidogrel Bisulfate [Plavix] 75 mg PO QD 10/19/19 DULoxetine HCL [Cymbalta] 30 mg PO DAILY 10/19/19 Montelukast [Singulair] 10 mg PO DAILY 10/19/19 Omeprazole 40 mg PO DAILY 10/19/19 Oxybutynin Chloride 5 mg PO BID 10/19/19 Rivastigmine Tartrate 3 mg PO BID 10/19/19 guaiFENesin ER TAB [Mucinex Tab] 1,200 mg PO BID 30 Days #120 tab 10/23/19 Benzonatate Perles [Tessalon Perles] 200 mg PO TID PRN 03/03/20 Ipratropium/Albuterol [Duoneb] 3 ml INH RTQID PRN 03/03/20 Rosuvastatin Calcium 10 mg PO DAILY 03/03/20 diphenhydrAMINE HCL [Benadryl] 25 mg PO Q4HR 03/03/20 Transfer to Outside Facility - Transfer Information Decision to Transfer Date: 07/03/20 Decision to Transfer Time: 21:00 Reason for Transfer: specialized care not available Accepting Facility: [facility]
[2020-07-03] MEDS ORDERED: ASPIRIN (CHEWABLE) 81 MG TAB PO ONE (20:18)
[2020-07-03] MEDS ORDERED: SODIUM CHLORIDE 0.9% 500ML 500 ML IVS PRN (20:54)
[2020-07-03] MEDS ORDERED: NITROGLYCERIN 0.4 MG 25 EA TAB SL ONE (21:10)
--- NOTE | 2020-07-03 21:13 | RAD ---
EXAM DESCRIPTION: XR Chest, 2 Views CLINICAL HISTORY: chest pain TECHNIQUE: Two views of the chest are submitted. COMPARISON: 10/23/2019 FINDINGS: Heart: The cardiothoracic silhouette is within normal limits. Lungs: No focal consolidation. Mediastinum: Thoracic aortic atherosclerosis. Pleura: No appreciable effusion. No pneumothorax. Bones: Lower cervical fusion hardware. Dorsal column stimulator leads terminate at the T7 level. Partially visualized upper to mid lumbar fusion hardware. Upper abdomen: Right upper quadrant surgical clips. IMPRESSION: No acute disease. Electronically signed by: Kal Hayden MD 07/03/2020 9:11 PM CDT
[2020-07-03 23:01] VITALS: BP 143/74; TEMP 97.9; O2SAT 95
== END 2020-07-03 22:35 | disposition short-term general hospital (02) ==
LOC: ER 19:50
DX: R07.9 Chest pain, unspecified (principal); I51.9 Heart disease, unspecified; I10 Essential (primary) hypertension; E07.9 Disorder of thyroid, unspecified; J45.909 Unspecified asthma, uncomplicated; Z86.73 Personal history of transient ischemic attack (TIA), and cerebral infarction without residual deficits; Z79.82 Long term (current) use of aspirin; Z79.899 Other long term (current) drug therapy; Z79.02 Long term (current) use of antithrombotics/antiplatelets; Z88.8 Allergy status to other drugs, medicaments and biological substances; Z88.5 Allergy status to narcotic agent; Z88.0 Allergy status to penicillin; Z88.2 Allergy status to sulfonamides
CPT/HCPCS: 71046; 80053; 83880; 84484; 85025; 85610; 85730; 93005; J7040